=== PATIENT | male | born 1955 | race Caucasian/White ===

== ENCOUNTER → 2017-11-27 08:24 | Outpatient (REF) | payer BC, SELFPAY ==
[2017-11-27 12:31] LABS: HCT 47.9 % (40.0-50.0); HGB 16.3 g/dL (13.5-17.5); Mean Corpuscular Hemoglobin 32.4 pg (27.0-33.0); Mean Corpuscular Volume 95.2 fL (80-95); Mean Platelet Volume 10.9 fL (8.0-11.0); Platelet Count 137 x1000/uL (130-400); RBC 5.03 m/cumm (4.50-6.00); RBC Distribution Width 12.9 % (11.8-14.1); White Blood Cell Count 5.14 k/cumm (4.4-10.8)
[2017-11-27 12:54] LABS: ALT 38 U/L (12-78); AST 25 U/L (15-37); Albumin 4.2 g/dL (3.4-5.0); Alkaline Phosphatase 56 U/L (46-116); Anion Gap 11.7 mmol/L (3-11); BUN 16 mg/dL (7-18); Bilirubin, Total 0.7 mg/dL (0.2-1.0); CO2 26.3 mmol/L (21.0-32.0); CREATININE 1.12 mg/dL (0.70-1.30); Calcium 8.7 mg/dL (8.5-10.1); Chloride 103 mmol/L (98-107); Cholesterol 240 mg/dL (50-200); Glucose 111 mg/dL (70-100); HDL Cholesterol 77 mg/dL (40-60); LDL CHOLESTEROL 151 mg/dL (<100); Potassium 4.5 mmol/L (3.5-5.1); Sodium 141 mmol/L (136-145); Total Protein 7.3 g/dL (6.4-8.2); Triglyceride 60 mg/dL (30-150)
== END ==
LOC: NCHCN 08:24
PROVIDERS: Visit Provider Family Medicine
DX: Z00.00 Encounter for general adult medical examination without abnormal findings (principal); Z13.0 Encounter for screening for diseases of the blood and blood-forming organs and certain disorders involving the immune mechanism; Z13.228 Encounter for screening for other metabolic disorders; Z13.220 Encounter for screening for lipoid disorders
CPT/HCPCS: 80053; 80061; 83721; 85027

== ENCOUNTER 2018-01-10 00:16 | Outpatient (CLI) | payer BC, SELFPAY ==
--- NOTE | 2018-01-10 08:22 | DI.US_ITS ---
SYMPTOM/DIAGNOSIS: LOCALIZED SWELLING LT ARM, ? DVT, R22.32, PAIN AT ELBOW, REDNESS LEFT UPPER EXTREMITY ULTRASOUND: The left basilic vein is non compressible and shows thrombus as well as mural thickening. The jugular, subclavian, brachial and cephalic veins are free of thrombus. No localized fluid collection or hematoma is seen. IMPRESSION: Basilic vein thrombosis.
== END 2018-01-10 00:36 ==
PROVIDERS: Visit Provider Nurse Practitioner
DX: R22.32 Localized swelling, mass and lump, left upper limb (principal); M25.522 Pain in left elbow; I82.612 Acute embolism and thrombosis of superficial veins of left upper extremity
CPT/HCPCS: 93971

== ENCOUNTER 2019-06-19 09:01 | Outpatient (REF) | payer MEDICARE, BC, SELFPAY ==
[2019-06-19 12:23] LABS: HCT 47.6 % (40.0-50.0); HGB 16.1 g/dL (13.5-17.5); Mean Corp. HGB Concentration 33.8 g/dL (32.0-36.0); Mean Corpuscular Hemoglobin 32.5 pg (27.0-33.0); Mean Corpuscular Volume 96.2 fL (80-95); Mean Platelet Volume 10.7 fL (8.0-11.0); Platelet Count 147 x1000/uL (130-400); RBC 4.95 m/cumm (4.50-6.00); RBC Distribution Width 13.1 % (11.8-14.1); White Blood Cell Count 6.52 k/cumm (4.4-10.8)
[2019-06-19 12:27] LABS: ALT 45 U/L (16-63); AST 30 U/L (15-37); Albumin 4.1 g/dL (3.4-5.0); Alkaline Phosphatase 53 U/L (46-116); Anion Gap 10.3 mmol/L (3-11); BUN 16 mg/dL (7-18); Bilirubin, Total 0.9 mg/dL (0.2-1.0); CO2 27.7 mmol/L (21.0-32.0); CREATININE 1.02 mg/dL (0.70-1.30); Calcium 8.9 mg/dL (8.5-10.1); Calculated LDL 138 mg/dL (<100); Chloride 103 mmol/L (98-107); Cholesterol 230 mg/dL (<200); Glucose 97 mg/dL (74-106); HDL Cholesterol 82 mg/dL (40-60); Potassium 4.4 mmol/L (3.5-5.1); Sodium 141 mmol/L (136-145); Triglyceride 50 mg/dL (<150)
[2019-06-19 13:26] LABS: Hemoglobin A1C 5.6 % (3.8-5.6)
== END 2019-06-19 09:21 ==
LOC: NCHCN 09:01
PROVIDERS: Visit Provider Family Medicine
DX: R73.03 Prediabetes (principal); E78.5 Hyperlipidemia, unspecified; I10 Essential (primary) hypertension
CPT/HCPCS: 80053; 80061; 85027; 83036

== ENCOUNTER 2020-12-07 09:00 | Outpatient (REF) | payer MEDICARE, BC, SELFPAY ==
[2020-12-07 14:29] LABS: ALT 40 U/L (16-63); AST 26 U/L (15-37); Albumin 4.2 g/dL (3.4-5.0); Alkaline Phosphatase 45 U/L (46-116); Anion Gap 8.6 mmol/L (3-11); BUN 16 mg/dL (7-18); Bilirubin, Total 0.9 mg/dL (0.2-1.0); CO2 28.4 mmol/L (21.0-32.0); CREATININE 1.1 mg/dL (0.70-1.30); Calcium 9.2 mg/dL (8.5-10.1); Calculated LDL 166 mg/dL (<100); Chloride 105 mmol/L (98-107); Cholesterol 253 mg/dL (<200); Glucose 104 mg/dL (74-106); HDL Cholesterol 77 mg/dL (40-60); Potassium 4.7 mmol/L (3.5-5.1); Sodium 142 mmol/L (136-145); Total Protein 7.3 g/dL (6.4-8.2); Triglyceride 53 mg/dL (<150)
[2020-12-07 14:41] LABS: Hemoglobin A1C 5.7 % (<5.7)
== END 2020-12-07 09:01 | disposition home or self-care (01) ==
LOC: NCHCN 09:00
PROVIDERS: Visit Provider Family Medicine
DX: R73.03 Prediabetes (principal); E78.5 Hyperlipidemia, unspecified; I10 Essential (primary) hypertension
CPT/HCPCS: 80053; 80061; 83036

== ENCOUNTER 2022-05-08 18:51 | Outpatient (REF) | payer MEDICARE, BC, SELFPAY ==
[2022-05-08 15:43] LABS: ALT 45 U/L (16-63); AST 33 U/L (15-37); Albumin 4.2 g/dL (3.4-5.0); Alkaline Phosphatase 53 U/L (46-116); Anion Gap 7.6 mmol/L (3-11); BUN 16 mg/dL (7-18); Bilirubin, Total 0.9 mg/dL (0.2-1.0); CO2 28.4 mmol/L (21.0-32.0); CREATININE 1.1 mg/dL (0.70-1.30); Calcium 9.5 mg/dL (8.5-10.1); Calculated LDL 144 mg/dL (<100); Chloride 102 mmol/L (98-107); Cholesterol 240 mg/dL (<200); Estimated GFR 73.58 (mL/min/1.73m2); Glucose 108 mg/dL (74-106); HDL Cholesterol 87 mg/dL (40-60); Potassium 5.1 mmol/L (3.5-5.1); Sodium 138 mmol/L (136-145); Total Protein 7.5 g/dL (6.4-8.2); Triglyceride 49 mg/dL (<150)
[2022-05-08 16:30] LABS: Hemoglobin A1C 5.4 % (<5.7)
== END 2022-05-08 18:52 | disposition home or self-care (01) ==
LOC: NCHCN 18:51
PROVIDERS: Visit Provider Family Medicine
DX: E78.5 Hyperlipidemia, unspecified (principal); R73.03 Prediabetes; I10 Essential (primary) hypertension; Z00.00 Encounter for general adult medical examination without abnormal findings
CPT/HCPCS: 80053; 80061; 83036

== ENCOUNTER 2023-07-04 08:52 | Outpatient (REF) | payer MEDICARE, BC, SELFPAY ==
[2023-07-04 14:09] LABS: HCT 48.6 % (40.0-50.0); HGB 16.5 g/dL (13.5-17.5); MCH 32.5 pg (27.0-33.0); MCV 96 fL (80-95); MPV 10.1 fL (8.0-11.0); Platelet Count 144 10^3/uL (130-400); RBC 5.07 10^6/uL (4.36-5.78); RDW 12.3 % (11.8-14.1); RDW-SD 43.2 fL; WBC 6.44 10^3/uL (4.4-10.8)
[2023-07-04 14:23] LABS: ALT 34 U/L (16-63); AST 22 U/L (15-37); Albumin 4.1 g/dL (3.4-5.0); Alkaline Phosphatase 59 U/L (46-116); Anion Gap 8.7 mmol/L (3-11); BUN 19 mg/dL (7-18); Bilirubin, Total 0.8 mg/dL (0.2-1.0); CO2 28.3 mmol/L (21.0-32.0); CREATININE 1.1 mg/dL (0.70-1.30); Calcium 9.8 mg/dL (8.5-10.1); Calculated LDL 156 mg/dL (<100); Chloride 103 mmol/L (98-107); Cholesterol 246 mg/dL (<200); Estimated GFR 72.67 (mL/min/1.73m2); Glucose 113 mg/dL (74-106); HDL Cholesterol 77 mg/dL (40-60); Sodium 140 mmol/L (136-145); Total Protein 7.5 g/dL (6.4-8.2); Triglyceride 68 mg/dL (<150)
[2023-07-04 14:34] LABS: Hemoglobin A1C 5.6 % (<5.7)
[2023-07-04 14:48] LABS: Vitamin D 25 Total 44.2 ng/mL (30-100)
== END 2023-07-04 08:53 | disposition home or self-care (01) ==
LOC: NCHCN 08:52
PROVIDERS: Referring Provider Family Medicine; Visit Provider Family Medicine
DX: E78.5 Hyperlipidemia, unspecified (principal); R73.03 Prediabetes; Z00.00 Encounter for general adult medical examination without abnormal findings
CPT/HCPCS: 80053; 80061; 82306; 85027; 83036

== ENCOUNTER 2024-07-08 08:55 | Outpatient (REF) | payer MEDICARE, BC, SELFPAY ==
[2024-07-08 14:45] LABS: ALT 38 U/L (16-63); AST 25 U/L (15-37); Albumin 4.1 g/dL (3.4-5.0); Alkaline Phosphatase 53 U/L (46-116); Anion Gap 8.1 mmol/L (3-11); BUN 17 mg/dL (7-18); Bilirubin, Total 0.9 mg/dL (0.2-1.0); CO2 29.9 mmol/L (21.0-32.0); CREATININE 1.3 mg/dL (0.70-1.30); Calcium 9.7 mg/dL (8.5-10.1); Calculated LDL 147 mg/dL (<100); Chloride 103 mmol/L (98-107); Cholesterol 241 mg/dL (<200); Glucose 109 mg/dL (74-106); HDL Cholesterol 82 mg/dL (>or=40); Potassium 5.1 mmol/L (3.5-5.1); Sodium 141 mmol/L (136-145); Total Protein 7.3 g/dL (6.4-8.2); Triglyceride 64 mg/dL (<150)
[2024-07-08 15:02] LABS: Hemoglobin A1C 5.4 % (<5.7)
== END 2024-07-08 08:56 | disposition home or self-care (01) ==
LOC: NCHCN 08:55
PROVIDERS: Visit Provider Family Medicine
DX: I10 Essential (primary) hypertension (principal); R73.03 Prediabetes
CPT/HCPCS: 80053; 80061; 83036

== ENCOUNTER 2024-10-27 08:37 | Emergency (ER) | payer MEDICARE, BC, SELFPAY ==
[2024-10-27] VITALS (22 sets, daily range): BP systolic 136–178; BP diastolic 87–105; PULSE 64–77; RESP 11–20; TEMP 36.6; O2SAT 94–97
--- NOTE | 2024-10-27 08:45 | RT.EKG_ITS ---
APPROVED REPORT Exam: Resting ECG Reason for Exam: Upper Gastric Pain Patient Location: E HR:71 bpm ECG Measurements Heart Rate 71 AXIS WI 160 P 19 QRSd 83 QRS -53 QT 388 T -21 QTc 421 Conclusion Sinus rhythm...normal P axis, V-rate 60- 99 Left anterior fascicular block...axis(240,-40), init forces inf Nonspecific T abnormalities, inferior leads...T <-0.10mV, II III aVF No Occlusion VA
--- NOTE | 2024-10-27 09:40 | W.ED.GENAD ---
Discharge Plan Disposition Patient Disposition: Home Condition: Good Discharge Details Clinical Impression: Esophagitis due to doxycycline, Acute sore throat Primary Care Provider: Unknown,Unknown ED Provider: Glory Oates Home Meds and New Rx's Prescriptions: New amoxicillin 500 mg capsule 500 mg PO TID 14 Days Qty: 42 0RF Continued metoprolol succinate [Toprol XL] 50 MG tablet extended release 24 hr 50 mg PO DAILY aspirin [Aspir-81] 81 MG tablet,delayed release (DR/EC) 81 mg PO DAILY ibuprofen [Ibuprofen Jr Strength] 100 MG tablet,chewable 200 mg PO Q6H PRN Discharge Instructions Instructions: Esophagitis Additional Instructions: As we discussed, your imaging and labs here are reassuring. Your history is most concerning for a pill esophagitis which is commonly associated with doxycycline. Please stop the doxycycline and begin the amoxicillin as prescribed for your previously diagnosed Lyme disease. Please continue to encourage hydration. You may use a proton pump inhibitor such as omeprazole, these are available [id number]. You may also use Mylanta as needed, please use as directed on the packaging. Please follow-up with primary care in the next 1 to 2 weeks for reevaluation. If you develop any new or worsening symptoms please seek care urgently once again. Discharge Data Discharge Date/Time-TO BE ENTERED AT DEPARTURE: 10/27/24 11:51 HPI General Date/Time Provider Initiated Documentation: 10/27/24 09:08. Limitations to Documentation: no limitations. Information obtained by: patient, RN notes reviewed and old records reviewed. History of Present Illness 69 year old M presents to the emergency department with the chief complaint of acid reflux, pain with swallowing, described as severe and similar to prior episodes, Quality is described as burning, and is localized to the chest. Patient reports no radiation. Patient started experiencing this hour(s) (began this morning) and it has been constant. No relieving factors improve symptom(s), Eating worsens symptoms . Patient notes chest pain and malaise (had been having flu sxs associated with Lyme, resolved); denies cough, fever/chills, nausea/vomiting, rash and shortness of breath. Patient did receive the following treatments prior to arrival, other (began on Doxy for Lyme 3 days ago) Related Data Home Medications ?Medication ?Instructions ?Recorded ?Confirmed aspirin 81 mg tablet,delayed 81 mg PO DAILY 04/15/14 08/10/16 release (Aspir-) ibuprofen 100 mg chewable tablet 200 mg PO Q6H PRN 04/15/14 08/10/16 (Ibuprofen Jr Strength) metoprolol succinate 50 mg 50 mg PO DAILY 04/15/14 08/10/16 tablet,extended release 24 hr (Toprol XL) amoxicillin 500 mg capsule 500 mg PO TID 14 days #42 caps 10/27/24 Previous Rx's ?Medication ?Instructions ?Recorded amoxicillin 500 mg capsule 500 mg PO TID 14 days #42 caps 10/27/24 Allergies Allergy/AdvReac Type Severity Reaction Status Date / Time No Known Allergies Allergy Unverified 08/10/16 09:08 General Stated Complaint: GenMedical MELISSA: 3 Review of Systems Constitutional Constitutional: Reports as per HPI, Denies chills, Denies fever(s) and Denies headache(s) ENT Ears, Nose, Mouth, and Throat: Denies dizziness, Denies headache(s), Denies hoarseness, Reports odynophagia and Denies sore throat Cardiovascular Cardiovascular: Reports as per HPI, Denies dyspnea and Denies dyspnea on exertion Respiratory Respiratory: Reports as per HPI, Denies chest congestion, Denies cough, Denies pain on inspiration, Denies pain with cough, Denies dyspnea and Denies dyspnea on exertion Gastrointestinal Gastrointestinal: Reports as per HPI, Denies abdominal pain, Denies diarrhea, Denies nausea, Reports odynophagia and Denies vomiting Genitourinary Genitourinary: Denies system reviewed and no additional complaints, except as documented (denies change in urinary habits) Musculoskeletal Musculoskeletal: Reports as per HPI and Denies back pain Integumentary/Breasts Skin/Breast: Reports as per HPI and Denies rash Neurologic Neurologic: Reports as per HPI, Denies dizziness and Denies headache(s) Exam Const General: cooperative, healthy appearing, comfortable, no acute distress and well developed Nutritional Appearance: average body habitus and well nourished Orientation: alert, awake and oriented x3 HENMT Head: normal to inspection Ears: hearing grossly normal bilaterally Mouth: moist mucous membranes Chest Chest: normal inspection of the chest, normal palpation of entire chest wall and no crepitus Resp Effort & Inspection: normal respiratory effort, able to speak in complete sentences and no respiratory distress Auscultation: clear to auscultation bilaterally, no rales, no rhonchi and no wheezes Cardio Rate: regular rate Rhythm: regular rhythm Heart Sounds: S1 normal and S2 normal GI Inspection: normal to inspection, no edema and non-distended Palpation: soft, no guarding, not rigid and nontender Auscultation: normal bowel sounds Skin General skin exam: no rashes or lesions noted Trauma: no lacerations or abrasions Neuro General: patient alert, patient awake and patient oriented x3 Cognition: normal cognition Speech: speech normal Extrem General: normal to inspection, capillary refill normal, no pedal edema and no calf tenderness Course Vital Signs Vital signs: Vital Signs Temperature 36.6 C 10/27/24 08:41 Pulse 77 10/27/24 08:41 Respiratory Rate 16 10/27/24 08:41 Blood Pressure 152/97 H 10/27/24 08:41 Pulse Oximetry 94 10/27/24 08:41 Temperature 36.6 C 10/27/24 08:41 Pulse 70 10/27/24 09:20 Pulse 70 10/27/24 09:20 Respiratory Rate 17 10/27/24 09:20 Respiratory Effort Normal, Non-Labored 10/27/24 09:15 Respiratory Depth Normal 10/27/24 09:15 Respiratory Pattern Normal 10/27/24 09:15 Blood Pressure 136/93 H 10/27/24 09:16 Blood Pressure Mean 103 10/27/24 09:16 Pulse Oximetry 96 10/27/24 09:20 Medical Decision Making Patient is a pleasant 69-year-old male, brought in by family chief complaint of epigastric discomfort, discomfort with swallowing, GERD symptoms. He reports that he was diagnosed with Lyme 4 days ago and began on doxycycline. Began having emergence of his acid reflux, he reports that it has been several years since he has had such an episode. States that it can cause some difficulty swallowing and he did have 1 episode of emesis yesterday but states it was more esophageal contents and no true GI contents. He denies any shortness of breath. No personal familial history of ACS. No recent change in his diet. He states that he does take the doxycycline after he eats but, particularly at night, this is several hours after eating. On exam, patient appears non-toxic. He is hemodynamically stable. Normal cardiac and pulmonary exams. 2+ distal pulses in all extremities. No epigstric discomfort. No pain with palpation of the chest, no crepitus. The burning symptoms radiating upward from the epigastric area, particularly with hx of GERD and recent start of the Doxy, makes esophagitis most likely. However, given his age, hx of HTN, paroxysmal a.fib, increases concern for possible ACS. He is not having any exertional symptoms, more associated with PO intake and swallowing. No difficulty swallowing, handling secretions, just discomfort. No back pain, no tearing, no radiation. Symptoms not consistent with dissection or aortic aneurysm. No pulmonary symptoms to suggest PE or infectious cause. No hematemesis to suggest Boerhaavs. Will give Mylanta, Protonix. Will obtain labs, including serial troponins, CXR. Labs reviewed. No leukocytosis. Slight thrombocytopenia which, based on history, is not surprising.CMP without any significant abnormality. Troponin was within normal limits and unchanged x 2, I do not feel that third is warranted. Reviewed information on doxycycline and did note that esophagitis is quite common, particular around day 3 which fits this patient's history. Will therefore switch him to amoxicillin. I discussed this with the patient. He is likely higher risk given his history of GERD. I did advise that he continue with the PPI as well as as needed Mylanta as this did seem to help with his symptoms. Will give him his first dose of Amoxicillin here. Encouraged follow-up with primary care. Return precautions were discussed. All questions and concerns were addressed and he is in agreement this plan. PFSH All Active Problems (Updated 10/27/24 @ 11:20 by DREW Mcfarlane) Acute sore throat (Acute) Esophagitis due to doxycycline (Acute) Medical History (Updated 10/27/24 @ 11:20 by DREW Mcfarlane) Hypertension Paroxysmal atrial tachycardia Reflux esophagitis Surgical History (Updated 04/15/14 @ 13:23 by Ricardo Busch, ) EGD - [facility] Colonoscopy - [facility] Social History Smoking/Tobacco Use Status: Never Smoking risk assessment performed?: Yes Alcohol Intake: current Alcohol Intake frequency: 0-2 drinks per day Alcohol type: beer and hard liquor Drug use: Never Substance use type: does not use Housing: house Do you feel safe at home: Yes Do you feel safe in your relationship?: Yes PAWSS Have you Been Recently Intoxicated or Drunk Within the Last 30 days?: No Have you Ever Experienced Previous Episodes of Alcohol Withdrawal?: No Have you ever Experienced Withdrawal Seizures?: No Have you ever Experienced Delirium Tremens(DT)s?: No Have you ever undergone Alcohol Rehabilitation Treatment (i.e, inpt ot outpatient treatment programs)?: No Have you ever Experienced Blackouts?: No Have you ever Combined Alcohol with other Downers within the last 90 days?: No Have you ever Combined Alcohol with any other Substance of Abuse during the last 90 days?: No Positive Blood Alcohol level on Presentation? [PCS.BAL]: No Evidence of Increased Autonomic Activity (i.e. HR>120, tremor, sweating, agitation, nausea)?: No Result: 0
--- NOTE | 2024-10-27 09:45 | DI.RAD_ITS ---
Exam(s) XR CHEST 2V PA LATERAL EXAM: XR CHEST 2V PA LATERAL CLINICAL HISTORY: Chest pain, difficulty swallowing TECHNIQUE: 2D digital imaging was performed. Two views. COMPARISON: CR CHEST 2 VIEWS PA,LAT from 05/31/2012 FINDINGS: HEART: Normal size. Aorta: Not dilated. PULMONARY VASCULATURE: Normal. MEDIASTINUM: Unremarkable. LUNGS: Clear. PLEURAL SPACE: No pleural effusion or pneumothorax. BONE:Unremarkable for age. SOFT TISSUES: Unremarkable. IMPRESSION: No acute abnormality. DATA REPOSITORY: RADIATION DOSE DELIVERED:
[2024-10-27] MEDS: Pantoprazole 40 MG VIAL IVP (10:10)
[2024-10-27] MEDS: Mylanta Suspension 30 ML CUP PO (10:10)
[2024-10-27 10:12] LABS: Abs Immature Grans 0.01 10^3/uL (0.0-0.06); HCT 45.0 % (40.0-50.0); HGB 15.6 g/dL (13.5-17.5); Immature Grans % 0.2 %; MCH 32.6 pg (27.0-33.0); MCHC 34.7 % (32.0-36.0); MCV 94 fL (80-95); MPV 10.3 fL (8.0-11.0); Platelet Count 124 10^3/uL (130-400); RBC 4.79 10^6/uL (4.36-5.78); RDW 11.8 % (11.8-14.1); RDW-SD 40.8 fL; WBC 4.78 10^3/uL (4.4-10.8)
[2024-10-27 10:33] LABS: ALT 38 U/L (16-63); AST 25 U/L (15-37); Albumin 3.7 g/dL (3.4-5.0); Alkaline Phosphatase 63 U/L (46-116); Anion Gap 13.4 mmol/L (3-11); BUN 21 mg/dL (7-18); Bilirubin, Total 0.8 mg/dL (0.2-1.0); CO2 23.6 mmol/L (21.0-32.0); Calcium 9.8 mg/dL (8.5-10.1); Chloride 99 mmol/L (98-107); Estimated GFR 80.97 (mL/min/1.73m2); Glucose 111 mg/dL (74-106); Magnesium 1.9 mg/dL (1.8-2.4); Potassium 4.1 mmol/L (3.5-5.1); Sodium 136 mmol/L (136-145); Total Protein 7.6 g/dL (6.4-8.2); Troponin I 6 ng/L (<or=76)
[2024-10-27 10:47] LABS: Troponin I 7 ng/L (<or=76)
[2024-10-27] MEDS: Amoxicillin 500 MG CAP PO (11:34)
== END 2024-10-27 11:51 | disposition home or self-care (01) ==
PROVIDERS: Emergency Provider Physician Assistant
DX: K20.90 Esophagitis, unspecified without bleeding (principal); T36.4X5A Adverse effect of tetracyclines, initial encounter; J02.9 Acute pharyngitis, unspecified
CPT/HCPCS: 36415; 80053; 93005; 99285; 71046; 83735; 84484; 85025; 93010; 99284; J2470